=== PATIENT | male | born 1985 | race Caucasian/White ===

== ENCOUNTER 2018-02-06 19:58 | Observation (INO) ==
--- NOTE | 2018-02-06 20:28 | Emergency Department Note ---
Disposition Clinical Impression: Chest pain in adult Disposition: Admitted As Inpatient Condition: Fair Chest Pain HPI - General Chief Complaint: ED Chest Pain Stated Complaint: CP Time Seen by Provider: 02/06/18 20:02 Source: patient Limitations: no limitations Vital Signs Reviewed: Yes (Hypertensive, 185/120 ) - History of Present Illness HPI Narrative: Pedrito is a 33 YO M with a PMH significant for poorly controlled hypertension who presents with chest pain. History comes from the patient. Pedrito states that he developed left sided non reproducible chest pain approximately 1.5 hours prior to arrival. This pain was not related to activity but was radiating into his left neck and jaw and into his left arm. He states that during this time he has also had intermittent symptoms of palpitations as well as diaphoresis, nausea and increased fatigue. He checked his blood pressure and found it to be over 200 systolic, and he chose to come to [place] for further evaluation and treatment. he has had palpitations in the past, and was scheduled for a 48 hour holter monitor early next week. He endorses a strong family history of cardiovascular disease, with all four of his grandparents dying of either [place] or stroke in their 50's-60's. Pt complaint: chest pain Onset (ago): hour(s) Duration: constant Onset: during rest Severity scale (1-10): 0 Quality: tightness, aching Pain Radiation: RUE, neck, jaw/teeth Improves with: nothing Worsens with: nothing Context: recent illness (had an episode of strep pharyngitis last week.) Associated symptoms: Reports: nausea, diaphoresis, palpitations. Denies: vomiting, dyspnea, fever, cough Treatments prior to arrival chest pain: none - Related Data Home Medications Medication Instructions Recorded Confirmed Lisinopril [Zestril] 10 mg PO DAILY 02/06/18 02/06/18 Meloxicam [Mobic] 15 mg PO DAILY 02/06/18 02/06/18 Sertraline [Zoloft] 50 mg PO DAILY 02/06/18 02/06/18 Allergies Allergy/AdvReac Type Severity Reaction Status Date / Time No Known Drug Allergies Allergy See Verified 10/23/16 01:32 Comments Constitutional: Reports: as per HPI. Denies: fever, chills Cardiovascular: Reports: as per HPI, chest pain, palpitations. Denies: edema Respiratory: Denies: cough, dyspnea Gastrointestinal: Reports: nausea. Denies: abdominal pain Neurological: Denies: headache, weakness, numbness, paresthesias, confusion Chest Pain PMH - Past Medical History Medical history: Reports: hypertension Psychiatric history: Reports: anxiety, depression - Social History Smoking Status: Never smoker Alcohol use: Reports: occasionally Drug use: Reports: none Physical Exam - General Limitations: no limitations General appearance: alert, in no apparent distress - Head Head exam: atraumatic, normocephalic - Eye Eye exam: Present: normal appearance, PERRL, EOMI - ENT ENT exam: normal exam, normal oropharynx, mucous membranes moist - Neck Neck exam: Present: normal inspection, full ROM, trachea midline - Chest Chest inspection: Present: normal inspection, symmetric chest wall rise - Respiratory Respiratory exam: Present: normal lung sounds bilaterally - Cardiovascular Cardiovascular exam: Present: regular rate, normal rhythm, normal heart sounds - Abdominal Exam Abdominal exam: Present: soft, Non-Tender. Absent: tenderness, distention, guarding, rebound, rigidity Course Course Narrative: ECG reveals NSR without interval change, ST segment abnormality or T wave changes. ASA will be ordered, troponins trended. - Reevaluation(s) Reevaluation #1: Patient showing multiple PVC's on monitor. Repeat ECG performed which shows ventricular bigeminy with prolonged QRS interval on alternating beats. Vital Signs Temperature 98.1 F 02/06/18 20:01 Pulse Rate 90 02/06/18 20:01 Respiratory Rate 20 02/06/18 20:01 Blood Pressure 186/115 02/06/18 20:01 O2 Sat by Pulse Oximetry 98 02/06/18 20:01 Temperature 98.1 F 02/06/18 20:01 Pulse Rate 82 02/06/18 22:22 Respiratory Rate 16 02/07/18 00:19 Blood Pressure 145/98 02/07/18 00:19 O2 Sat by Pulse Oximetry 100 02/06/18 22:22 Oxygen Delivery Oxygen Delivery Room Air Chest Pain - Lab Data Result diagrams: 02/07/18 03:12 02/07/18 03:12 Lab Results 02/06/18 02/06/18 02/06/18 Range/Units 20:19 20:19 20:19 WBC 7.5 (4.3-11.1) K/mcL RBC 5.00 (4.19-5.50) M/mcL Hgb 14.4 (12.9-16.9) g/dL Hct 41.8 (37.5-50.1) % MCV 83.6 (83.0-100.0) fL MCH 28.8 (28.0-33.3) pg MCHC 34.4 (31.6-35.5) g/dL RDW 11.8 (11.5-14.5) % Plt Count 233 (140-400) K/mcL MPV 10.0 (9.4-12.4) fL Immature Gran % 0.3 (0-4) % Seg Neutrophils % 42.9 % Lymphocytes % 49.5 % Monocytes % 6.3 % Eosinophils % 0.5 % Basophils % 0.5 % Neutrophils # 3.2 (1.6-8.9) K/mcL Lymphocytes # 3.7 (0.6-4.6) K/mcL Monocytes # 0.5 (0.0-1.3) K/mcL Eosinophils # 0.0 (0.0-0.6) K/mcL Basophils # 0.0 (0.0-0.2) K/mcL PT 10.9 (9.4-12.1) Seconds INR 1.0 APTT 34.4 (26.0-36.0) Seconds Sodium (136-145) mEq/L Potassium (3.5-5.1) mEq/L Chloride (98-107) mEq/L Carbon Dioxide (23-29) mEq/L BUN (6-20) mg/dL Creatinine (0.70-1.30) mg/dL Est GFR ( Amer) (> 60) Est GFR (Non-Af Amer) (> 60) BUN/Creatinine Ratio (6-26) Glucose (70-105) mg/dL Calculated Osmolality (280-300) Calcium (8.6-10.3) mg/dL Magnesium (1.6-2.6) mg/dL Troponin I (< 0.04) ng/mL B-Natriuretic Peptide 57 (Less than 100) pg/mL 02/06/18 02/06/18 Range/Units 20:19 22:34 WBC (4.3-11.1) K/mcL RBC (4.19-5.50) M/mcL Hgb (12.9-16.9) g/dL Hct (37.5-50.1) % MCV (83.0-100.0) fL MCH (28.0-33.3) pg MCHC (31.6-35.5) g/dL RDW (11.5-14.5) % Plt Count (140-400) K/mcL MPV (9.4-12.4) fL Immature Gran % (0-4) % Seg Neutrophils % % Lymphocytes % % Monocytes % % Eosinophils % % Basophils % % Neutrophils # (1.6-8.9) K/mcL Lymphocytes # (0.6-4.6) K/mcL Monocytes # (0.0-1.3) K/mcL Eosinophils # (0.0-0.6) K/mcL Basophils # (0.0-0.2) K/mcL PT (9.4-12.1) Seconds INR APTT (26.0-36.0) Seconds Sodium 137 (136-145) mEq/L Potassium 3.9 (3.5-5.1) mEq/L Chloride 102 (98-107) mEq/L Carbon Dioxide 26 (23-29) mEq/L BUN 12 (6-20) mg/dL Creatinine 0.77 (0.70-1.30) mg/dL Est GFR ( Amer) > 60 (> 60) Est GFR (Non-Af Amer) > 60 (> 60) BUN/Creatinine Ratio 16 (6-26) Glucose 90 (70-105) mg/dL Calculated Osmolality 283 (280-300) Calcium 9.3 (8.6-10.3) mg/dL Magnesium 2.2 (1.6-2.6) mg/dL Troponin I < 0.03 (< 0.04) ng/mL B-Natriuretic Peptide (Less than 100) pg/mL Attestation Statement - Attestation Attestation: I examined this patient and my medical decision-making was reviewed with the Resident Physician. I agree with the documented findings, disposition and treatment plan as described except to the extent set forth below. Findings consistent with bigeminy and possible cardiomegaly. We will admit for cardiac consultation and echocardiogram. No chest pain at the time of admission. EKG on repeat shows bigeminal rhythm. Nonspecific ST segments. Nonspecific abnormal ECG.
[2018-02-06 20:38] LABS: Basophils % 0.5 %; Eosinophils % 0.5 %; Hematocrit 41.8 % (37.5-50.1); Hemoglobin 14.4 g/dL (12.9-16.9); Immature Granulocytes % 0.3 % (0-4); Lymphocytes # 3.7 K/mcL (0.6-4.6); Lymphocytes % 49.5 %; Mean Corpuscular HGB Conc 34.4 g/dL (31.6-35.5); Mean Corpuscular Hemoglobin 28.8 pg (28.0-33.3); Mean Corpuscular Volume 83.6 fL (83.0-100.0); Monocytes # 0.5 K/mcL (0.0-1.3); Monocytes % 6.3 %; Neutrophils # 3.2 K/mcL (1.6-8.9); Platelet Count 233 K/mcL (140-400); Red Cell Distribution Width 11.8 % (11.5-14.5); Segmented Neutrophils % 42.9 %
[2018-02-06 20:48] LABS: Prothrombin Time 10.9 Seconds (9.4-12.1)
[2018-02-06 20:51] LABS: Activated Partial Thrombo Time 34.4 Seconds (26.0-36.0)
[2018-02-06 20:56] LABS: BUN/Creatinine Ratio 16 (6-26); Blood Urea Nitrogen 12 mg/dL (6-20); Calcium 9.3 mg/dL (8.6-10.3); Carbon Dioxide 26 mEq/L (23-29); Chloride 102 mEq/L (98-107); Glucose 90 mg/dL (70-105); Osmolality,Calculated 283 (280-300); Potassium 3.9 mEq/L (3.5-5.1); Sodium 137 mEq/L (136-145); eGFR For Non-African Americans > 60 (> 60)
[2018-02-06 20:59] LABS: Troponin I < 0.03 ng/mL (< 0.04)
[2018-02-06] MEDS: Nitroglycerin 0.4 MG TAB.SUBL SL PRN ×2 (21:07→21:13)
[2018-02-07] MEDS ORDERED: Acetaminophen 325 MG TABLET PO PRN (02:19)
[2018-02-07] MEDS ORDERED: Naloxone 0.4 MG/ML INJ IVP PRN (02:19)
--- NOTE | 2018-02-07 02:31 | Internal Med History&Physical ---
Date of Encounter: 02/07/18 Time of Encounter: 01:25 Internal Medicine - H&P: HPI Chief complaint: chest pain; palpitations Admitted From: Emergency Dept Plans for Post Hospital Care: Home History of present illness: Mr. Ch is a 33 year old male who presents with complaints of chest tightness, palpitations, daytime somnolence, worsening fatigue, and worsening exercise intolerance. Workup in the ER was negative initially. 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 An EKG was obtained and confirmed bigeminy. Patient was therefore admitted for further cardiac workup. Of note, patient states his chest pain was relieved by two sublingual nitroglycerin tablets upon arrival to ER. Upon my assessment of the patient, he remains chest pain-free. He frankly denies any significant chest pain. He describes it as slight pressure, but he more commonly has palpitations and extra beats he noted on his chest. He states he has had heart rhythm issues in the past, most notably ventricular bigeminy. He has never had a stress test or heart catheterization. He suffers from long- standing hypertension and recently diagnosed sleep apnea. Unfortunately, he admits to suboptimal compliance with his lisinopril and complete noncompliance with his CPAP mask. His notes that he has been apneic at night many times, and he has awakened from sleep many times gasping for air. He also notes worsening daytime somnolence and fatigue. Regarding his lisinopril, he states he might miss 1 or 2 doses during the week. Blood pressure at home runs about 140-150 systolic chronically. Family history is positive for heart disease throughout his mother's and his father's side. Patient does not smoke and he rarely drinks alcohol. Past Med Surg Social Fam HX - Past Medical History Attestation: Yes The following information was validated with the patient. Source: patient, old records reviewed Medical history: hypertension Additional medical history: irregular rhythm. CRISS Psychiatric history: anxiety, depression - Past Surgical History Surgical History: appendectomy, orthopedic, other, tonsilectomy - Social History Smoking Status: Never smoker Smokeless Tobacco Status: Yes Alcohol use: occasionally Drug use: none Occupational status: employed Current living situation: Home, With Family Activity Level: Independent ambulation Recent Out of Country Travel Within the Last 8 Weeks: No - Family History Paternal Grandmother Age at : 69 Cause of : CVA Hx Family Cardiac Disorders: Yes (CVA, HTN, [place]) Hx Family Respiratory Disorders: Yes (COPD) Hx Family Cancer: No Hx Family GI Disorders: No Hx Family Genitourinary Disorders: No Hx Family Endocrine Disorder: No Hx Family Musculoskeletal Disorders: No Hx Family Neuromuscular Disorders: No Hx Family Neurologic Disorders: No Hx Family HEENT Disorders: No Hx Family Autoimmune Disorders: No Hx Family Reproductive Disorders: No Hx Family Psychosocial Disorders: No Hx Family Medical Disorders: No Paternal Grandfather Age at : 59 Cause of : [place] Hx Family Cardiac Disorders: Yes ([place], HTN) Hx Family Respiratory Disorders: No Hx Family Cancer: No Hx Family GI Disorders: No Hx Family Genitourinary Disorders: No Hx Family Endocrine Disorder: No Hx Family Musculoskeletal Disorders: No Hx Family Neuromuscular Disorders: No Hx Family Neurologic Disorders: No Hx Family HEENT Disorders: No Hx Family Autoimmune Disorders: No Hx Family Reproductive Disorders: No Hx Family Psychosocial Disorders: No Hx Family Medical Disorders: No Mother Living Status: Still Living Hx Family Cardiac Disorders: Yes Father Living Status: Still Living Hx Family Cardiac Disorders: Yes Internal Medicine - H&P: Meds Lisinopril [Zestril] 10 mg PO DAILY 02/06/18 [History] Meloxicam [Mobic] 15 mg PO DAILY 02/06/18 [History] Sertraline [Zoloft] 50 mg PO DAILY 02/06/18 [History] Allergy/AdvReac Type Severity Reaction Status Date / Time No Known Drug Allergies Allergy See Verified 10/23/16 01:32 Comments - Constitutional Constitutional: fatigue, no chills, no fever(s), no malaise - EENT Eyes: no blurry vision, no change in vision Ears: no ear pain, no tinnitus Nose, mouth and throat: no nasal congestion, no sinus pressure, no sore throat - Cardiovascular Cardiovascular ROS IM: chest pain, irregular heart rhythm, palpitations, no dyspnea, no dyspnea on exertion, no edema, no orthopnea, no paroxysmal nocturnal dyspnea, no syncope - Respiratory Respiratory: snoring, no cough, no hemoptysis, no chest congestion, no excessive phlegm production, no change in phlegm color - Gastrointestinal Gastrointestinal: no diarrhea, no hematemesis, no hematochezia, no melena, no nausea, no vomiting - Genitourinary Genitourinary ROS male: no dysuria, no flank pain, no hematuria - Musculoskeletal Musculoskeletal ROS IM: no arthralgias, no back pain - Integumentary Integumentary IM: no rash, no jaundice - Neurological Neurological ROS: no dizziness, no focal weakness, no frequent falls, no headache(s) - Psychiatric Psychiatric: anxiety, no depression - Endocrine Endocrine IM: no cold intolerance, no heat intolerance, no polydipsia, no polyphagia, no polyuria - Hematologic/Lymphatic Hematologic/Lymphatic: no easy bruising, no lymphadenopathy - Allergic/Immunologic Allergic/Immunologic: no wheezing, no GI upset with certain foods - Constitutional Vitals: Temp Pulse Resp BP Pulse Ox 98.1 F 82 16 145/98 100 02/06/18 20:01 02/06/18 22:22 02/07/18 00:19 02/07/18 00:19 02/06/18 22:22 General appearance: Present: cooperative, A&O X 3, pleasant, no acute distress, answers questions appropriately Exam: chest pain free - Head Head exam: Present: atraumatic, normal inspection - Eye Eye exam: Present: EOMI, PERRL. Absent: scleral icterus Pupils: Present: normal accommodation - ENT ENT exam: Present: mucous membranes dry, normal exam, normal oropharynx - Neck Neck exam general surgery: Present: full ROM, supple, trachea midline. Absent: tenderness, nuchal rigidity, thyromegaly - Expanded Neck Exam Neck exam: Absent: carotid bruit - Respiratory Respiratory exam: Present: CTAB. Absent: chest wall tenderness, rales, respiratory distress, rhonchi, wheezes - Cardiovascular Cardiovascular exam: Present: RRR, +S1, +S2. Absent: diastolic murmur, rubs, systolic murmur - GI/Abdominal GI/Abdominal exam: Present: normal bowel sounds, soft. Absent: guarding, hepatomegaly, mass, rebound, splenomegaly, tenderness - Extremities Exam Extremities exam: Present: full ROM, normal capillary refill, warm, radial pulses palpable and symmetrical. Absent: calf tenderness, pedal edema, tenderness - Back Exam Back exam: Present: normal inspection. Absent: CVA tenderness (L), CVA tenderness (R) - Neurological Exam Neurological exam: Present: alert, CN II-XII intact, oriented X3, no focal deficits, strengths equal and symetr throughout - Psychiatric Psychiatric exam: Present: normal affect, normal mood - Skin Skin exam: Present: dry, intact, warm. Absent: rash Internal Med - H&P Results - Labs CBC & Chem 7: 02/06/18 20:19 02/06/18 20:19 Labs: Short CBC 02/06/18 Range/Units 20:19 WBC 7.5 (4.3-11.1) K/mcL Hgb 14.4 (12.9-16.9) g/dL Hct 41.8 (37.5-50.1) % Plt Count 233 (140-400) K/mcL Neutrophils # 3.2 (1.6-8.9) K/mcL BMP 02/06/18 20:19 Sodium 137 Potassium 3.9 Chloride 102 Carbon Dioxide 26 BUN 12 Creatinine 0.77 Glucose 90 Calcium 9.3 Cardiac Enzymes 02/06/18 Range/Units 20:19 Troponin I < 0.03 (< 0.04) ng/mL - EKG Data -: EKG Interpreted by Myself - EKG Data Prior EKG available for review: no EKG comments: 02/07/18 02:38 ventricular bigeminy - Impressions ITS Impressions Chest X-Ray 02/06/18 20:24 IMPRESSION: Low lung volumes. Enlarged cardiomediastinal silhouette, with suggestion of pulmonary venous congestion. This could also be seen in setting of low lung volumes. Correlation with volume status is recommended. D/ / Alessio Mason MD / Alessio Mason MD Interpreting Provider: Alessio Mason MD - Diagnostic Studies Chest x-ray Status: image reviewed by me (mild cardiomegaly; lungs clear) - Assessment and plan (1) Chest pain Current Visit: Yes Status: Acute Assessment and plan: 1. Symptoms appear to be atypical. 2. Will trend troponins and EKG's. 3. Stress test can be done outpatient if work-up remains negative prior to discharge. 4. Consult cardiology -- more so given the bigeminy findings on EKG. Suspect hypertensive heart disease and untreated CRISS as etiology for bigeminy and current symptoms. 5. Will order ECHO. Qualifiers: Chest pain type: precordial pain Qualified Code(s): R07.2 - Precordial pain (2) Ventricular bigeminy Current Visit: Yes Status: Acute Assessment and plan: 1. Work-up and cardiology consult as above. 2. Suspect due to hypertensive heart disease and CRISS. 3. Will also monitor electrolytes, correct if necessary, and order TSH. (3) Hypertension Current Visit: Yes Status: Chronic Assessment and plan: 1. Continue Lisinopril and monitor. 2. Add PRN Hydralazine for uncontrolled BP. 3. Adjust Lisinopril dosing prior to discharge for better BP control. Qualifiers: Hypertension type: essential hypertension Qualified Code(s): I10 - Essential (primary) hypertension (4) CRISS (obstructive sleep apnea) Current Visit: Yes Status: Chronic Assessment and plan: 1. Patient is non-compliant with CPAP. 2. Discussed the need for intermodal customer service CPAP use in order to prevent intermodal customer service complications and sequelae of untreated CRISS. 3. Patient encouraged to wear CPAP chronically. (5) DVT prophylaxis Current Visit: Yes Status: Acute Assessment and plan: 1. Heparin SQ.
[2018-02-07 03:36] LABS: Basophils % 0.5 %; Eosinophils # 0.1 K/mcL (0.0-0.6); Eosinophils % 0.7 %; Hematocrit 41.3 % (37.5-50.1); Hemoglobin 14.2 g/dL (12.9-16.9); Immature Granulocytes % 0.4 % (0-4); Immature Platelets 3.1 % (1.1-6.1); Lymphocytes # 3.1 K/mcL (0.6-4.6); Lymphocytes % 39.9 %; Mean Corpuscular HGB Conc 34.4 g/dL (31.6-35.5); Mean Corpuscular Hemoglobin 28.8 pg (28.0-33.3); Mean Corpuscular Volume 83.8 fL (83.0-100.0); Mean Platelet Volume 10.1 fL (9.4-12.4); Monocytes # 0.5 K/mcL (0.0-1.3); Monocytes % 6.7 %; Platelet Count 233 K/mcL (140-400); Red Blood Count 4.93 M/mcL (4.19-5.50); Red Cell Distribution Width 11.9 % (11.5-14.5); Segmented Neutrophils % 51.8 %
[2018-02-07 03:53] LABS: Alanine Aminotransferase 31 Units/L (7-52); Albumin 4.5 g/dL (3.5-5.7); Albumin/Globulin Ratio 1.6 (1.1-2.2); Alkaline Phosphatase 80 Units/L (34-104); Aspartate Amino Transferase 24 Units/L (13-39); BUN/Creatinine Ratio 14 (6-26); Bilirubin,Total 0.5 mg/dL (0.3-1.0); Blood Urea Nitrogen 10 mg/dL (6-20); Calcium 9.5 mg/dL (8.6-10.3); Carbon Dioxide 25 mEq/L (23-29); Chloride 105 mEq/L (98-107); Chol/HDL Ratio 4.6 (0-4.9); Cholesterol 210 mg/dL (< 200); Globulin 2.9 g/dL (2.4-3.5); Glucose 102 mg/dL (70-105); HDL Cholesterol 46 mg/dL (40-59); LDL Cholesterol,Calculated 143 mg/dL (0-99); Magnesium 2.1 mg/dL (1.6-2.6); Osmolality,Calculated 285 (280-300); Sodium 138 mEq/L (136-145); Total Protein 7.4 g/dL (6.4-8.9); Triglycerides 103 mg/dL (< 150); eGFR For Non-African Americans > 60 (> 60)
[2018-02-07 04:05] LABS: Thyroid Stimulating Hormone 2.122 mcIU/mL (0.340-5.600)
[2018-02-07] MEDS: *HR* Heparin 5,000 UNIT/ML VIAL SQ SCH ×2 (05:35→17:29)
--- NOTE | 2018-02-07 10:51 | Cardiology Consult Note ---
<Andrei Corrales - Last Filed: 02/07/18 10:53> Date of Encounter: 02/07/18 Time of Encounter: 09:40 Assessment and Plan (1) Chest pain Current Visit: Yes Status: Acute C/o intermittent chest pain that does increase with activity and is releived with NTG. Troponin negative x3. EKG shows SR with no acute ST changes. Cardiac risk factors include HTN and CRISS. Agree with stress test for further evaluation. Check TTE. Qualifiers: Chest pain type: precordial pain Qualified Code(s): R07.2 - Precordial pain (2) Ventricular bigeminy Current Visit: Yes Status: Acute Noted to have frequent PVC and bigemeny on telemetry. Stress test and echo for further evaluation. If no concerning findings will start CCB. (3) CRISS (obstructive sleep apnea) Current Visit: Yes Status: Chronic Progression of disease and importance of compliance with treatment discussed. Discussion w patient/family: The assessment and plan as outlined above was discussed with the patient and/or family members who expressed understanding and agreement. All questions were answered. Thank you for involving us in the care of your patient. Please call with any questions. History of Present Illness Consult date: 02/07/18 Requesting physician: Leandro Fields Consult reason: Chest pain, bigemeny Chief complaint: Chest pain, palpitations, fatigue History of present illness: Mr. Ch is a 33 year old male with past medical history significant for HTN and untreated sleep apnea who presents with the c/o midsternal chest pain, palpitations, and fatigue for two weeks. He was treated for strep throat two weeks ago. At that time he was noted to have uncontrolled blood pressure. He presented to the ED yesterday and was given SL NTG x2 with releif of his chest pain. Initial work-up was negative. He was going to be discharged until he was seen to have bigemeny on telemetry. He states he was diagnosed with CRISS over the summer and was recommended to start c-pap. He says he did not follow through with having the c-pap set up. Past Med Surg Social Fam HX - Past Medical History Attestation: Yes The following information was validated with the patient. Medical history: hypertension, other Additional medical history: irregular rhythm. CRISS Psychiatric history: anxiety, depression - Past Surgical History Surgical History: appendectomy, orthopedic, other, tonsilectomy - Social History Smoking Status: Never smoker Smokeless Tobacco Status: Yes Alcohol use: occasionally Drug use: none - Family History Paternal Grandmother Age at : 69 Cause of : CVA Hx Family Cardiac Disorders: Yes (CVA, HTN, [place]) Hx Family Respiratory Disorders: Yes (COPD) Hx Family Cancer: No Hx Family GI Disorders: No Hx Family Genitourinary Disorders: No Hx Family Endocrine Disorder: No Hx Family Musculoskeletal Disorders: No Hx Family Neuromuscular Disorders: No Hx Family Neurologic Disorders: No Hx Family HEENT Disorders: No Hx Family Autoimmune Disorders: No Hx Family Reproductive Disorders: No Hx Family Psychosocial Disorders: No Hx Family Medical Disorders: No Paternal Grandfather Age at : 59 Cause of : [place] Hx Family Cardiac Disorders: Yes ([place], HTN) Hx Family Respiratory Disorders: No Hx Family Cancer: No Hx Family GI Disorders: No Hx Family Genitourinary Disorders: No Hx Family Endocrine Disorder: No Hx Family Musculoskeletal Disorders: No Hx Family Neuromuscular Disorders: No Hx Family Neurologic Disorders: No Hx Family HEENT Disorders: No Hx Family Autoimmune Disorders: No Hx Family Reproductive Disorders: No Hx Family Psychosocial Disorders: No Hx Family Medical Disorders: No Mother Living Status: Still Living Hx Family Cardiac Disorders: Yes Father Living Status: Still Living Hx Family Cardiac Disorders: Yes Medications and Allergies Lisinopril [Zestril] 10 mg PO DAILY 02/06/18 [History] Meloxicam [Mobic] 15 mg PO DAILY 02/06/18 [History] Sertraline [Zoloft] 50 mg PO DAILY 02/06/18 [History] Allergy/AdvReac Type Severity Reaction Status Date / Time Penicillins Allergy Anaphylaxis Verified 02/07/18 06:39 All Systems Review: The remainder of the systems were reviewed and are negative Physical Examination Vital Signs, Last 4 Hours BP Pulse Ox 02/07/18 08:15 158/93 02/07/18 07:57 98 General: Conversant, No Apparent Distress HEENT: Atraumatic, Normocephaly, Mucus Membranes Moist Neck: No JVD, Normal carotid pulses Cardiac: Reg Rate and Rhythm, Normal S1 and S2, No Murmur Lungs: Normal Breath Sounds, No Wheeze, Rales, Rhonchi Neuro: Alert and responsive, No focal deficits noted Abdomen: Soft, Non-Tender, Other (Bs+ x4) Skin: No rashes noted on visualized skin Musculoskeletal: No Chest Wall Tenderness Extremities: No Clubbing, No Cyanosis, No Edema, Normal Pulses Results 02/07/18 03:12 02/07/18 03:12 Lab Results 02/06/18 02/06/18 02/06/18 20:19 20:19 20:19 WBC 7.5 Hgb 14.4 Hct 41.8 Plt Count 233 INR 1.0 APTT 34.4 Sodium Potassium Chloride Carbon Dioxide BUN Creatinine Glucose Calcium Magnesium Total Bilirubin AST ALT Alkaline Phosphatase Troponin I B-Natriuretic Peptide 57 TSH 02/06/18 02/06/18 02/07/18 20:19 22:34 03:12 WBC Hgb Hct Plt Count INR APTT Sodium 137 Potassium 3.9 Chloride 102 Carbon Dioxide 26 BUN 12 Creatinine 0.77 Glucose 90 Calcium 9.3 Magnesium 2.2 Total Bilirubin AST ALT Alkaline Phosphatase Troponin I < 0.03 < 0.03 B-Natriuretic Peptide TSH 02/07/18 02/07/18 03:12 03:12 WBC 7.7 Hgb 14.2 Hct 41.3 Plt Count 233 INR APTT Sodium 138 Potassium 4.0 Chloride 105 Carbon Dioxide 25 BUN 10 Creatinine 0.73 Glucose 102 Calcium 9.5 Magnesium 2.1 Total Bilirubin 0.5 AST 24 ALT 31 Alkaline Phosphatase 80 Troponin I B-Natriuretic Peptide TSH 2.122 - Imaging and Cardiology Echo: report reviewed - EKG Interpretation EKG results cardiology: personally reviewed Consult Discharge Plan - Plan Referrals: Lanny Morel CNP [Primary Care Provider] - 02/12/18 5:40 am < A - Last Filed: 02/07/18 11:44> Date of Encounter: 02/07/18 - Attending Attestation I have personally performed a face to face evaluation on this patient. I have reviewed and agree with the documented findings and care plan as documented by the FELT CUTTING MACHINE OPERATOR. History and Exam by me shows: 33-year-old male with history of hypertension, CRISS admitted to observation unit atypical chest pain and palpitations. AAOX3 in NAD at the bedside Hemodynamically stable Cardiopulmonary exam revealed S1 and S2. Clear lungs Rhythm reviewed -sinus rhythm with ventricular bigeminy Echo pending Impression/plan: Atypical chest pain. I agree with exercise stress test. Obtain echocardiogram Ventricular bigeminy- if EF is normal, CCB if symptomatic for palpitations CRISS-needs to lose weight; follow-up with pulmonary sleep study Thanks, Giovanni Maldonado MD Assessment and Plan Discussion w patient/family: The assessment and plan as outlined above was discussed with the patient and/or family members who expressed understanding and agreement. All questions were answered. Thank you for involving us in the care of your patient. Please call with any questions. History of Present Illness History of present illness: Mr. Ch is a 33 year old male All Systems Review: The remainder of the systems were reviewed and are negative Physical Examination Vital Signs, Last 4 Hours BP Pulse Ox 02/07/18 08:15 158/93 02/07/18 07:57 98 Results 02/07/18 03:12 02/07/18 03:12 Lab Results 02/06/18 02/06/18 02/06/18 20:19 20:19 20:19 WBC 7.5 Hgb 14.4 Hct 41.8 Plt Count 233 INR 1.0 APTT 34.4 Sodium Potassium Chloride Carbon Dioxide BUN Creatinine Glucose Calcium Magnesium Total Bilirubin AST ALT Alkaline Phosphatase Troponin I B-Natriuretic Peptide 57 TSH 02/06/18 02/06/18 02/07/18 20:19 22:34 03:12 WBC Hgb Hct Plt Count INR APTT Sodium 137 Potassium 3.9 Chloride 102 Carbon Dioxide 26 BUN 12 Creatinine 0.77 Glucose 90 Calcium 9.3 Magnesium 2.2 Total Bilirubin AST ALT Alkaline Phosphatase Troponin I < 0.03 < 0.03 B-Natriuretic Peptide TSH 02/07/18 02/07/18 02/07/18 03:12 03:12 09:52 WBC 7.7 Hgb 14.2 Hct 41.3 Plt Count 233 INR APTT Sodium 138 Potassium 4.0 Chloride 105 Carbon Dioxide 25 BUN 10 Creatinine 0.73 Glucose 102 Calcium 9.5 Magnesium 2.1 Total Bilirubin 0.5 AST 24 ALT 31 Alkaline Phosphatase 80 Troponin I < 0.03 B-Natriuretic Peptide TSH 2.122
--- NOTE | 2018-02-07 13:52 | Internal Med Progress Note ---
Hospitalist Progress Note - Encounter Date of Encounter: 02/07/18 Time of Encounter: 10:30 - Subjective Interval History: Mr. Ch is a 33 year old male who presents with complaints of chest tightness, palpitations, daytime somnolence, worsening fatigue, and worsening exercise intolerance. Workup in the ER was negative initially. However, as he was being prepared to be discharged from the ER, he was having palpitations and was noted to have bigeminy on cafeteria monitor. An EKG was obtained and confirmed bigeminy. Patient was therefore admitted for further cardiac workup. Patient denied active chest pain now. Reviewed his EKG from the ER which showed ventricular bigeminy. Repeat EKG showed normal sinus rhythm no acute ST T changes . - Exam Vitals: Temp Pulse Resp BP Pulse Ox 98.0 F 90 17 158/93 98 02/07/18 06:29 02/07/18 06:29 02/07/18 06:29 02/07/18 08:15 02/07/18 07:57 Exam: Gen: Alert, awake, Oriented to time,place and person Chest: Diminished breath sounds B/L, No wheezing, No crackles, No rales Heart: S1S2+ RRR No murmurs Abd: Soft, NT, BS +, No organomegaly Ext: No edema, pulses are palpable, No calf tenderness Neuro : Benign findings Skin: No rash. - Assessment and Plan (1) Chest pain Current Visit: Yes Status: Acute Assessment and Plan: Negative troponin x 3 no acute ischemic changes on EKG however given his ventricular bigeminy and multiple PVC on EKG need to rule out any ischemic heart disease continue him on cafeteria monitor ordered nuclear stress test.. He does need 2 days stress test placed him on aspirin Sublingual Nitro as needed for chest pain (2) Ventricular bigeminy Current Visit: Yes Status: Acute Assessment and Plan: Started ischemic cardiac workup appreciate cardiology recommendations may get benefit with low-dose beta vinicius, however at age 33 it may not be the best to start him on B vinicius, will talk to cardiology about this (3) Hypertension Current Visit: Yes Status: Chronic Assessment and Plan: Fairly controlled Inc Lisinopril to 20mg Cont IV Hydralazine (4) CRISS (obstructive sleep apnea) Current Visit: Yes Status: Chronic Assessment and Plan: He had home sleep study he does have sleep apnea, need CPAP study as an outpatient (5) DVT prophylaxis Current Visit: Yes Status: Acute Assessment and Plan: on Heparin SQ. - Time Spent with Patient Total time spent is greater than 50% in coordination of care (as documented) at patient's floor/unit and/or counseling patient: Internal Medicine: Result - Labs CBC & Chem 7: 02/07/18 03:12 02/07/18 03:12 Labs: Short CBC 02/06/18 02/07/18 Range/Units 20:19 03:12 WBC 7.5 7.7 (4.3-11.1) K/mcL Hgb 14.4 14.2 (12.9-16.9) g/dL Hct 41.8 41.3 (37.5-50.1) % Plt Count 233 233 (140-400) K/mcL Neutrophils # 3.2 4.0 (1.6-8.9) K/mcL BMP 02/06/18 02/07/18 20:19 03:12 Sodium 137 138 Potassium 3.9 4.0 Chloride 102 105 Carbon Dioxide 26 25 BUN 12 10 Creatinine 0.77 0.73 Glucose 90 102 Calcium 9.3 9.5 Cardiac Enzymes 02/06/18 02/07/18 02/07/18 Range/Units 20:19 03:12 09:52 Troponin I < 0.03 < 0.03 < 0.03 (< 0.04) ng/mL Liver Function 02/07/18 Range/Units 03:12 Total Bilirubin 0.5 (0.3-1.0) mg/dL AST 24 (13-39) Units/L ALT 31 (7-52) Units/L Alkaline Phosphatase 80 (34-104) Units/L Albumin 4.5 (3.5-5.7) g/dL - ABG Interpretation ABG results: PT/INR, D-dimer PT 10.9 Seconds (9.4-12.1) 02/06/18 20:19 - Impressions Impressions Chest X-Ray 02/06/18 20:24 IMPRESSION: Low lung volumes. Enlarged cardiomediastinal silhouette, with suggestion of pulmonary venous congestion. This could also be seen in setting of low lung volumes. Correlation with volume status is recommended. D/ / Alessio Mason MD / Alessio Mason MD Interpreting Provider: Alessio Mason MD Echocardiogram 02/07/18 02:19 Impressions: LVEF 55-60%. Normal LV chamber size, wall thickness and function. Normal right ventricular structure and function. No significant valvular dysfunction. Unable to estimate RVSP due to lack of TR jet. Left Ventricular Wall Motion: Rest Echo Findings All wall segments showed normal motion. Findings: Study Quality * Technically adequate exam. ECG Findings * Normal sinus rhythm. Left Ventricle * LVEF 55-60%. * Normal LV chamber size, wall thickness and function. * Normal left ventricular diastolic function. Right Ventricle * Normal right ventricular structure and function. Left Atrium * Normal left atrial size. Right Atrium * Normal right atrial size. Interatrial Septum * Interatrial septum not well evaluated. * No evidence of PFO by color Doppler. Aortic Valve * Trileaflet aortic valve with normal function. * No aortic regurgitation. * No aortic stenosis. Mitral Valve * Normal mitral valve structure and function. * No mitral stenosis. * Trace mitral regurgitation. Tricuspid Valve * Normal tricuspid valve structure and function. * No tricuspid stenosis. * Trace tricuspid regurgitation. * Unable to estimate RVSP due to lack of TR jet. * Estimated RA pressure is 8 mmHg. Pulmonic Valve * Pulmonic valve is not well visualized. * No pulmonic stenosis. * No pulmonic regurgitation. Aorta * Normally sized aortic root. Pericardium * The pericardium appears normal. IVC * Normal IVC dimensions and inspiratory collapse. Consult Discharge Plan - Plan Referrals: Lanny Morel, STEEL BOX TOE INSERTER [Primary Care Provider] - 02/12/18 5:40 am (1) Chest pain Qualifiers: Chest pain type: precordial pain Qualified Code(s): R07.2 - Precordial pain (3) Hypertension Qualifiers: Hypertension type: essential hypertension Qualified Code(s): I10 - Essential (primary) hypertension
[2018-02-08] MEDS: *HR* Heparin 5,000 UNIT/ML VIAL SQ SCH (05:44)
[2018-02-08 06:58] VITALS: BP 146/97
[2018-02-08] MEDS ORDERED: Diltiazem CD (24hr) 120 MG CAPSULE PO SCH (10:00)
--- NOTE | 2018-02-08 10:13 | Discharge Summary ---
- NOTES TO OUTPATIENT PROVIDER Notes to Outpatient Provider: Follow up with PCP in one week. follow-up with cardiology in one week. please follow up with sleep study center as scheduled regarding your CPAP Orders not resulted at time of discharge: Pending orders 02/07/18 09:27 NM joellen perf SPECT multi [NM] Routine Date of Encounter: 02/08/18 Time of Encounter: 10:08 - Discharge Diagnosis (1) Chest pain Priority: Primary Status: Acute Qualifiers: Chest pain type: precordial pain Qualified Code(s): R07.2 - Precordial pain (2) Ventricular bigeminy Priority: Primary Status: Acute (3) Hypertension Priority: Secondary Status: Chronic Qualifiers: Hypertension type: essential hypertension Qualified Code(s): I10 - E ssential (primary) hypertension (4) CRISS (obstructive sleep apnea) Priority: Secondary Status: Chronic (5) DVT prophylaxis Priority: Secondary Status: Acute Hospital course: Mr. Ch is a 33 year old male who presents with complaints of chest tightness, palpitations, daytime somnolence, worsening fatigue, and worsening exercise intolerance. Workup in the ER was negative initially. However, as he was being prepared to be discharged from the ER, he was having palpitations and was noted to have bigeminy on site monitor. An EKG was obtained and confirmed bigeminy. Patient was therefore admitted for further cardiac workup. Reviewed his EKG from the ER which showed ventricular bigeminy. Repeat EKG showed normal sinus rhythm no acute ST T changes . His serial troponin x 3 negative. Patient was evaluated by public health. He did go for nuclear stress test which came back is negative for any ischemia. He still have frequent PVCs on the monitor with symptoms of palpitations, so started him on Cardizem cd 120 mg PO daily and recommend him to f/u with Card as an out pt. Counseled the patient about staying away from caffeine drinks. Also recommended to follow with the primary care/pulmonary regarding his CPAP - Time Spent with Patient Total time spent providing and/or coordinating discharge services: - Discharge Medications Prescriptions: Diltiazem CD (24hr) [Cardizem CD] 120 mg PO DAILY #30 cap.er.24h Home Medications: Lisinopril [Zestril] 10 mg PO DAILY 02/06/18 [History] Meloxicam [Mobic] 15 mg PO DAILY 02/06/18 [History] Sertraline [Zoloft] 50 mg PO DAILY 02/06/18 [History] Diltiazem CD (24hr) [Cardizem CD] 120 mg PO DAILY #30 cap.er.24h 02/08/18 [Rx] Allergies/Adverse Reactions: Allergy/AdvReac Type Severity Reaction Status Date / Time Penicillins Allergy Anaphylaxis Verified 02/07/18 06:39 Date of admission: 02/06/18 23:46 Primary care physician: Lanny Morel CNP Consults: 02/07/18 02:21 Consult to Physician [CONS] Routine Consulting Provider: Giovanni Maldonado Reason for Consult: chest pain; bigeminy Call Completed: No - Constitutional Vitals: Temp Pulse Resp BP Pulse Ox 97.6 F 63 16 146/97 96 02/08/18 06:51 02/08/18 06:51 02/08/18 06:51 02/08/18 06:51 02/08/18 06:51 General appearance: Present: cooperative, A&O X 3, pleasant, no acute distress, answers questions appropriately Exam: Gen: Alert, awake, Oriented to time,place and person Chest: Diminished breath sounds B/L, No wheezing, No crackles, No rales Heart: S1S2+ RRR No murmurs Abd: Soft, NT, BS +, No organomegaly Ext: No edema, pulses are palpable, No calf tenderness Neuro : Benign findings Skin: No rash. - Patient Status Disposition: Home, Self-Care Condition: Good Overall status at discharge: patient is back to baseline - Discharge Instructions Instructions: Diltiazem (By mouth), Chest Pain (DC), Premature Ventricular Contractions (DC) Follow Up With: Lanny Morel CNP [Primary Care Provider] - 02/12/18 5:40 am Giovanni Maldonado MD [Non-Partnered Physician] - - Diet and Activity Diet: low salt diet
--- NOTE | 2018-02-08 11:55 | Cardiology Progress Note ---
Date of Encounter: 02/08/18 Time of Encounter: 11:52 Assessment and Plan (1) Chest pain Status: Acute C/o intermittent chest pain associated with palpitations that does increase with activity. Troponin negative x3. EKG shows SR with no acute ST changes. Cardiac risk factors include HTN and CRISS. Stress test completed found to be negative for iscemia or infarct. Noted hypertension at baseline and hypertensive b/p response to exercise. TTE shows preserved EF and no significant valvular disease. He was noted to have bigemenal PVC during his stay that correlated with his sy mptoms. He is recommended to start CCB. Recommend that he starts CRISS treatment. Out-pt f/u will be coordinated. Qualifiers: Chest pain type: precordial pain Qualified Code(s): R07.2 - Precordial pain (2) Ventricular bigeminy Status: Acute Noted to have frequent PVC and bigemeny on telemetry. Start CCB. (3) CRISS (obstructive sleep apnea) Status: Chronic Progression of disease and importance of compliance with treatment discussed. Discussion w patient/family: The assessment and plan as outlined above was discussed with the patient and/or family members who expressed understanding and agreement. All questions were an swered. Thank you for involving us in the care of your patient. Please call with any questions. Subjective Principal diagnosis: palpitations, PVC, chest pain Interval history: Mr. Ch states he felt palpitations all morning. He was seen to have bigemeny. He is trying to set up c-pap at home. he already has an order he was given in July of this year. Objective General: Conversant, No Apparent Distress HEENT: Atraumatic, Normocephaly, Mucus Membranes Moist Neck: No JVD, Normal carotid pulses Cardiac: Reg Rate and Rhythm, Normal S1 and S2, No Murmur Lungs: Normal Breath Sounds, No Wheeze, Rales, Rhonchi Neuro: Alert and responsive, No focal deficits noted Abdomen: Soft, Non-Tender Skin: No rashes noted on visualized skin Musculoskeletal: No Chest Wall Tenderness Extremities: No Clubbing, No Cyanosis, No Edema, Normal Pulses Results 02/07/18 03:12 02/07/18 03:12 - Imaging and Cardiology Stress Test: report reviewed Echo: report reviewed - EKG Interpretation EKG results cardiology: personally reviewed Consult Discharge Plan - Plan Instructions: Diltiazem (By mouth), Chest Pain (DC), Premature Ventricular Contractions (DC) Referrals: Sree Enrique MD [Partnered Physician] - 02/12/18 2:30 pm Lanny Morel CNP [Primary Care Provider] - 02/12/18 3:40 pm Giovanni Maldonado MD [Non-Partnered Physician] - Prescriptions: Diltiazem CD (24hr) [Cardizem CD] 120 mg PO DAILY #30 cap.er.24h
--- NOTE | 2018-02-10 22:30 | Electrocardiograph Report ---
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
--- NOTE | 2018-02-10 22:35 | Electrocardiograph Report ---
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
--- NOTE | 2018-02-11 09:10 | Electrocardiograph Report ---
[address] [address] Test Date: 2018-02-08 Pat Name: Pedrito Ch Department: 113 Room: 3B Gender: M Leave Coordinator: : 1985 Requested By: Constantin Schroeder Order Number: [id number] Reading MD: Norma Pagan Measurements Intervals [place] Rate: 87 P: 66 NM: 173 QRS: 24 QRSD: 106 T: 54 QT: 355 QTc: 400 Interpretive Statements SINUS RHYTHM WITH FREQUENT VENTRICULAR PREMATURE COMPLEXES IN A BIGEMINAL PATTERN ARTIFACT Electronically Signed On 02-11-2018 9:08:31 EST by Norma Pagan
--- NOTE | 2018-02-11 09:38 | Electrocardiograph Report ---
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
== END 2018-02-08 11:10 | disposition home or self-care (01) ==
LOC: 3BNU 19:58 → EMEROOARM 19:58 → 3BNU 23:49
PROVIDERS: ADMIT Pediatrics; ATTEND Pediatrics

== ENCOUNTER 2021-01-21 14:07 | Observation (INO) ==
[2021-01-21 14:49] LABS: Basophils % 0.4 %; Eosinophils # 0.1 K/mcL (0.0-0.6); Eosinophils % 0.5 %; Hematocrit 42.9 % (37.5-50.1); Hemoglobin 14.3 g/dL (12.9-16.9); Immature Granulocytes % 0.5 % (0-4); Lymphocytes # 3.1 K/mcL (0.6-4.6); Lymphocytes % 33.6 %; Mean Corpuscular HGB Conc 33.3 g/dL (31.6-35.5); Mean Corpuscular Hemoglobin 28.6 pg (28.0-33.3); Mean Corpuscular Volume 85.8 fL (83.0-100.0); Mean Platelet Volume 8.8 fL (9.4-12.4); Monocytes # 0.7 K/mcL (0.0-1.3); Monocytes % 7.3 %; Neutrophils # 5.3 K/mcL (1.6-8.9); Platelet Count 379 K/mcL (140-400); Red Cell Distribution Width 12.4 % (11.5-14.5); Segmented Neutrophils % 57.7 %; White Blood Count 9.1 K/mcL (4.3-11.1)
[2021-01-21 15:11] LABS: BUN/Creatinine Ratio 14 (6-26); Blood Urea Nitrogen 12 mg/dL (6-20); Calcium 9.7 mg/dL (8.6-10.3); Carbon Dioxide 29 mEq/L (23-29); Chloride 99 mEq/L (98-107); Glucose 107 mg/dL (70-105); Osmolality,Calculated 280 (280-300); Potassium 3.8 mEq/L (3.5-5.1); Sodium 135 mEq/L (136-145); Troponin I < 0.03 ng/mL (< 0.04); eGFR For African Americans > 60 (> 60); eGFR For Non-African Americans > 60 (> 60)
[2021-01-21] MEDS ORDERED: Ondansetron ODT 4 MG TAB.RAPDIS SL PRN (18:13)
[2021-01-21] MEDS ORDERED: Naloxone 0.4 MG/ML INJ IVP PRN (18:13)
[2021-01-21] MEDS ORDERED: Perflutren Lipid Microsphere 1.3 ML in 0.9 % Sodium Chloride 8.7 ML IVP PRN (18:24)
[2021-01-21 18:37] LABS: Magnesium 1.9 mg/dL (1.6-2.6); Phosphorous 4.4 mg/dL (2.7-4.5)
[2021-01-21 18:50] LABS: Thyroid Stimulating Hormone 1.161 mcIU/mL (0.340-5.600)
[2021-01-21] MEDS ORDERED: clonazePAM 0.5 MG TABLET PO PRN (20:28)
[2021-01-22 03:09] VITALS: O2SAT 95
[2021-01-22 07:16] VITALS: BP 122/78; PULSE 86; TEMP 97.6
[2021-01-22] MEDS ORDERED: lisinopriL 10 MG TABLET PO SCH (09:00)
[2021-01-22] MEDS ORDERED: DilTIAZem CD (24hr) 120 MG CAP.ER.24H PO SCH (09:00)
== END 2021-01-22 14:44 | disposition home or self-care (01) ==
LOC: EMEROOARM 14:07 → 3BNU 14:07 → SUATTDRO 18:10 → 3BNU 18:51
PROVIDERS: ADMIT Family Medicine; ATTEND Registered Nurse